=== PATIENT | male | born 1950 | race Hispanic/Latino ===

== ENCOUNTER 2017-03-26 16:50 | Observation (INO) | payer MEDICARE ==
[2017-03-26] MEDS ORDERED: TDAP Vaccine 0.5 mL Syr IM ONE (17:17)
--- NOTE | 2017-03-26 17:17 | ED PDOC ---
Arrival/HPI - General Chief Complaint: Alcohol Ingestion Time Seen by Provider: 03/26/17 17:08 Historian: Patient - History of Present Illness Narrative History of Present Illness (Text): 03/26/17 17:16 59 y/o male, +etoh on breath, FS 77, multiple abrasion on the frontal forehead and the facial region, nkda, last tetanus doesn't remember, biba for etoh intoxication on the public. Pt. admits drinking, admits fall on the frontal forehead and facial about couple days ago due to the alcohol intoxication. pt. stated that he feels well and "wants to go to [place]." Pt. has no homicidal or suicidal ideation, no auditory or visual hallucination, no numbness or tingling, no palpitation. Pt. is currently on the stretcher with no complaints. Past Medical History - Provider Review Nursing Documentation Reviewed: Yes - Infectious Disease Hx of Infectious Diseases: None - Psychiatric Hx Substance Use: No Family/Social History - Physician Review Nursing Documentation Reviewed: Yes Family/Social History: Unknown Family HX Smoking Status: Unknown If Ever Smoked Hx Alcohol Use: Yes Hx Substance Use: No Allergies/Home Meds Allergies/Adverse Reactions: Allergies Unobtainable Allergy (Verified 03/26/17 17:06) Home Medications: Home Meds Medication Instructions Recorded Confirmed Unobtainable 03/26/17 03/26/17 Review of Systems - Review of Systems Systems not reviewed;Unavailable: Intoxicated Constitutional: absent: Fevers Respiratory: absent: SOB, Cough, Sputum Cardiovascular: absent: Chest Pain Gastrointestinal: absent: Abdominal Pain, Diarrhea, Nausea, Vomiting Skin: Rash. absent: Pruritis, Skin Lesions, Laceration, Abscess, Ulcer, Cellulitis Neurological: absent: Headache, Dizziness, Focal Weakness Physical Exam - Physical Exam Physical Exam Limitations: Intoxication Vital Signs Reviewed: Yes Vital Signs Temp Pulse Resp BP Pulse Ox 03/26/17 21:00 73 18 151/73 H 96 03/26/17 19:00 84 18 144/88 100 03/26/17 17:15 98.6 F 96 H 18 143/78 98 Temperature: Afebrile Blood Pressure: Normal Pulse: Regular Respiratory Rate: Normal Appearance: Positive for: Well-Appearing, Comfortable Pain Distress: None - Systems Exam Head: Present: Abrasion (visible healing abrasion wound noted on the rt. frontal forehead region. ). No: Laceration Pupils: Present: PERRL Extroacular Muscles: Present: EOMI Conjunctiva: Present: Normal Ears: Present: NORMAL TM, Normal Canal. No: Erythema Mouth: Present: Moist Mucous Membranes Nose (External): Present: Abrasion (visible bridge abrasion region. ), Contusion. No: Laceration, Lesions Nose (Internal): Present: No Active Bleeding, Moist. No: Rhinorrhea, Septal Deviation, Septal Hematoma, Epistaxis Neck: Present: Normal Range of Motion, Trachea Midline. No: MIDLINE TENDERNESS , Paraspinal Tenderness, Lymphadenopathy Respiratory/Chest: Present: Clear to Auscultation, Good Air Exchange. No: Respiratory Distress, Accessory Muscle Use Cardiovascular: Present: Regular Rate and Rhythm, Normal S1, S2. No: Murmurs Abdomen: Present: Normal Bowel Sounds. No: Tenderness, Distention, Peritoneal Signs, Rebound, Guarding Back: Present: Normal Inspection Upper Extremity: Present: Normal Inspection. No: Cyanosis, Edema Lower Extremity: Present: Normal Inspection. No: Edema Neurological: Present: GCS=15, Motor Func Grossly Intact, Memory Normal Skin: Present: Warm, Dry, Normal Color. No: Rashes Psychiatric: Present: Alert, Normal Insight, Normal Concentration Medical Decision Making ED Course and Treatment: 03/26/17 17:21 -FS -CT head and facial -tetanus -wound irrigate with normal saline, clean with betadine, bacitracin and gauze dressing -observe until sober -will reassess - RAD Interpretation Radiology Orders: 03/26/17 17:17 HEAD W/O CONTRAST [CT] Stat MAXILLOFACIAL W/O CONTRAST [CT] Stat PROCEDURE: CT HEAD WITHOUT CONTRAST. HISTORY: etoh, frontal forehead wound COMPARISON: None available. TECHNIQUE: Axial computed tomography images were obtained through the head/brain without intravenous contrast. Radiation dose: Total exam DLP = 1672.32 mGy-cm. This CT exam was performed using one or more of the following dose reduction techniques: Automated exposure control, adjustment of the mA and/or kV according to patient size, and/or use of iterative reconstruction technique. FINDINGS: HEMORRHAGE: No intracranial hemorrhage. BRAIN: Diffuse atrophy with prominence of the ventricles and sulci noted. No mass effect or edema. Intracranial atherosclerotic calcifications. Scattered periventricular and subcortical white matter hypodensities, which are nonspecific, but often seen with chronic microvascular ischemic disease. Please note that MRI with diffusion imaging is more sensitive in the detection of acute ischemic event. VENTRICLES: No hydrocephalus. CALVARIUM: Unremarkable. PARANASAL SINUSES: Unremarkable as visualized. No significant inflammatory changes. MASTOID AIR CELLS: Unremarkable as visualized. No inflammatory changes. OTHER FINDINGS: Bilateral nasal bone fracture deformities may be chronic. Correlate clinically. IMPRESSION: Generalized atrophy. Nonspecific white matter changes. Bilateral nasal bone fracture deformities may be chronic. Correlate clinically. CT maxillofacial bones without IV contrast Indication: ETOH, trauma Comparison: Noncontrast head CT performed the same day Technique: Axial computed tomography images were obtained of the maxillofacial bones without the use of intravenous contrast. Coronal and sagittal reformatted images were generated and reviewed. This CT exam was performed using 1 or more of the falling dose reduction techniques: Automated exposure control, adjustment of the MAA and/or kV according to patient size, and/or use of iterative reconstruction technique. Radiation dose: Total exam DLP = 933.95 mGy-cm. Findings: Right frontal scalp soft tissue swelling. Comminuted bilateral nasal bone fracture deformities. Apparent associated soft tissue swelling. The remainder of the facial bones appear intact without acute displaced fracture. The orbits appear unremarkable. The temporomandibular joints are located. The visualized brain appears unremarkable. The paranasal sinuses appear clear without air- fluid levels. Impression: Comminuted bilateral nasal bone fracture deformities with evidence of associated soft tissue swelling; correlate clinically. Right frontal scalp soft tissue swelling. Switch Repairer: Radiologist - Medication Orders Current Medication Orders: Discontinued Medications Amoxicillin/Clavulanate Potassium (Augmentin 875 Mg-125 Mg Tab) 1 tab PO STAT STA PRN Reason: Protocol Stop: 03/26/17 19:29 Last Admin: 03/26/17 19:42 Dose: 1 tab Tetanus/Reduced Diphtheria/Acell Pertussis (Boostrix Vaccine Inj) 0.5 ml IM .ONCE ONE Stop: 03/26/17 17:18 Last Admin: 03/26/17 18:39 Dose: 0.5 ml ED OBSERVATION Discharge: Yes Date of observation admission: 03/26/17 Time of observation admission: 19:29 - Observation admission statement Patient is being placed in observation because:: alcohol intoxication - Goals of Observation Goals of observation are:: sober - Progress Note Progress Note: 03/26/17 20:00 -Augmentin ordered -CT Head show no acute traumatic findings -CT facial show soft tissue swelling with the nasal fractures. 03/26/17 22:00 -Pt. has no medical or psychological complaints, sleeping well and easily arousable. 03/26/17 23:54 -Pt. is walking with normal gait and posture, clinically sober, discussed about the CT facial about the nasal fracture. -Discharge home with augmentin, take tylenol or motrin for pain, avoid rubbing or blowing the nose, follow up with your own pmd and ENT within 2 days, return to the ER for any new or worsening signs or symptoms. - PA / TELEVISION RECEIVER ANALYZER / Resident Statement MD/DO has reviewed & agrees with the documentation as recorded. Disposition/Present on Arrival - Present on Arrival Any Indicators Present on Arrival: No History of DVT/PE: No History of Uncontrolled Diabetes: No Urinary Catheter: No History of Decub. Ulcer: No History Surgical Site Infection Following: None - Disposition Have Diagnosis and Disposition been Completed?: Yes Diagnosis: Alcohol intoxication, Head injury, Facial contusion, Abrasion, Nasal fracture Disposition: HOME/ ROUTINE Disposition Time: 23:55 Patient Plan: Discharge Patient Problems: Current Active Problems Problem Status Onset Alcohol intoxication Acute Head injury Acute Facial contusion Acute Abrasion Acute Nasal fracture Acute Condition: IMPROVED
[2017-03-26 18:13] VITALS: TEMP 98.6
--- NOTE | 2017-03-26 18:25 | CT ---
PROCEDURE: CT HEAD WITHOUT CONTRAST. HISTORY: etoh, frontal forehead wound COMPARISON: None available. TECHNIQUE: Axial computed tomography images were obtained through the head/brain without intravenous contrast. Radiation dose: Total exam DLP = 1672.32 mGy-cm. This CT exam was performed using one or more of the following dose reduction techniques: Automated exposure control, adjustment of the mA and/or kV according to patient size, and/or use of iterative reconstruction technique. FINDINGS: HEMORRHAGE: No intracranial hemorrhage. BRAIN: Diffuse atrophy with prominence of the ventricles and sulci noted. No mass effect or edema. Intracranial atherosclerotic calcifications. Scattered periventricular and subcortical white matter hypodensities, which are nonspecific, but often seen with chronic microvascular ischemic disease. Please note that MRI with diffusion imaging is more sensitive in the detection of acute ischemic event. VENTRICLES: No hydrocephalus. CALVARIUM: Unremarkable. PARANASAL SINUSES: Unremarkable as visualized. No significant inflammatory changes. MASTOID AIR CELLS: Unremarkable as visualized. No inflammatory changes. OTHER FINDINGS: Bilateral nasal bone fracture deformities may be chronic. Correlate clinically. IMPRESSION: Generalized atrophy. Nonspecific white matter changes. Bilateral nasal bone fracture deformities may be chronic. Correlate clinically.
--- NOTE | 2017-03-26 18:30 | CT ---
CT maxillofacial bones without IV contrast Indication: ETOH, trauma Comparison: Noncontrast head CT performed the same day Technique: Axial computed tomography images were obtained of the maxillofacial bones without the use of intravenous contrast. Coronal and sagittal reformatted images were generated and reviewed. This CT exam was performed using 1 or more of the falling dose reduction techniques: Automated exposure control, adjustment of the MAA and/or kV according to patient size, and/or use of iterative reconstruction technique. Radiation dose: Total exam DLP = 933.95 mGy-cm. Findings: Right frontal scalp soft tissue swelling. Comminuted bilateral nasal bone fracture deformities. Apparent associated soft tissue swelling. The remainder of the facial bones appear intact without acute displaced fracture. The orbits appear unremarkable. The temporomandibular joints are located. The visualized brain appears unremarkable. The paranasal sinuses appear clear without air-fluid levels. Impression: Comminuted bilateral nasal bone fracture deformities with evidence of associated soft tissue swelling; correlate clinically. Right frontal scalp soft tissue swelling.
[2017-03-26] MEDS ORDERED: Amoxicillin-Clav 875-125 mg Tab PO STA (19:28)
[2017-03-27 00:35] VITALS: BP 141/78; PULSE 79; RESP 18; O2SAT 99
== END 2017-03-26 23:56 | disposition home or self-care (01) ==
LOC: ED 16:50 → EROBSV 19:30 → EDBD 19:30
PROVIDERS: ADMIT Emergency Medicine; ATTEND Emergency Medicine
DX: F10.129 Alcohol abuse with intoxication, unspecified (principal); S02.2XXA Fracture of nasal bones, initial encounter for closed fracture; S00.83XA Contusion of other part of head, initial encounter; S09.90XA Unspecified injury of head, initial encounter; S00.81XA Abrasion of other part of head, initial encounter; W19.XXXA Unspecified fall, initial encounter; Z23 Encounter for immunization
CPT/HCPCS: 70450; 70486; 90471; 90715; 99283; G0378